=== PATIENT | male | born 1995 | race Caucasian/White ===

== ENCOUNTER 2017-01-10 02:07 | Emergency (ER) | payer OTHER, BC ==
[2017-01-10 02:16] VITALS: BP 155/83
--- NOTE | 2017-01-10 02:42 | EDM.PDOC ---
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 [No Known Home Meds] 12/13/14 [History] Past Medical History - Past Health History Medical/Surgical History: Denies Medical/Surgical History - Past Surgical History Other Musculoskeletal Surgeries/Procedures:: pain to right hand and wrist; pulse present; able to wiggle the right digits Social & Family History - Tobacco Use Smoking Status *Q: Never Smoker Second Hand Smoke Exposure: Yes - Caffeine Use Caffeine Use: Reports: Coffee, Soda, Tea - Alcohol Use Number of Drinks Per Day: 0 - Recreational Drug Use Recreational Drug Use: No Review of Systems - Review of Systems Review Of Systems: ROS reveals no pertinent complaints other than HPI. ED EXAM, GENERAL - Physical Exam Exam: See Below Exam Limited By: No Limitations General Appearance: Alert, WD/WN, No Apparent Distress Ears: Hearing Grossly Normal Throat/Mouth: Normal Voice, No Airway Compromise Head: Atraumatic Neck: Non-Tender, Full Range of Motion Respiratory/Chest: No Respiratory Distress Cardiovascular: Regular Rate, Rhythm GI/Abdominal: Soft, Non-Tender Extremities: Other (tender right lateral hand, NV wnl.) Neurological: Alert, Oriented, Normal Cognition, Normal Gait, No Motor/Sensory Deficits Psychiatric: Normal Affect, Normal Mood Skin Exam: Warm, Dry Lymphatic: No Adenopathy Course - Vital Signs Last Recorded V/S: Last Vital Signs Temp 36.8 C 01/10/17 02:10 Pulse 96 01/10/17 02:10 Resp 18 01/10/17 02:10 BP 155/83 H 01/10/17 02:10 Pulse Ox 100 01/10/17 02:10 - Orders/Labs/Meds Orders: Active Orders 24 hr Category Date Time Status Hand Comp Min 3V Rt [CR] Urgent Exams 01/10/17 02:13 Taken Departure - Departure Time of Disposition: 02:40 Disposition: Home, Self-Care 01 Condition: Good Clinical Impression: Fracture of hand Qualifiers: Encounter type: initial encounter Fracture type: closed Laterality: right Qualified Code(s): S62.91XA - Unspecified fracture of right wrist and hand, initial encounter for closed fracture - Discharge Information Instructions: Metacarpal Fracture, [id number] Forms: ED Department Discharge Additional Instructions: 1) wear sling and splint until seen by Orthopedist 2) see clinic Thursday for ORTHOPEDIC REFERRAL for hand fracture - My Orders Last 24 Hours: My Active Orders 01/10/17 02:13 Hand Comp Min 3V Rt [CR] Urgent - Assessment/Plan Last 24 Hours: My Active Orders 01/10/17 02:13 Hand Comp Min 3V Rt [CR] Urgent
== END 2017-01-10 02:44 | disposition home or self-care (01) ==
LOC: DL.ED 02:07
DX: S62.319A Displaced fracture of base of unspecified metacarpal bone, initial encounter for closed fracture (principal); W22.01XA Walked into wall, initial encounter
CPT/HCPCS: 73130-RT; 99283